=== PATIENT | female | born 1940 | race Caucasian/White ===

== ENCOUNTER 2016-10-12 22:44 | Observation (INO) | payer MEDICARE, OTHER ==
[~2016-10-12] VITALS: Ht 160 cm; Wt 85.3 kg
[~2016-10-12 22:44] MED LIST: ALBUTEROL0.63 MG/3 INH; ASPIR 8181 MG PO; CLARITIN10 MG PO; FLEXERIL 10 MG10 MG PO; FUROSEMIDE20 MG PO; KLOR-CON M2020 MEQ PO; LAMISIL250 MG PO; LEVEMIR100 UNIT/1 SQ; LIPITOR TAB 2020 MG PO; LISINOPRIL40 MG PO; METFORMIN HCL1000 MG PO; METOPROLOL TART50 MG PO; NEURONTIN 300300 MG PO; NEXIUM40 MG PO; NIASPAN1000 MG PO; NITROGLYCERIN2.5 MG PO; NORVASC 5 MG TAB5 MG PO; NOVOLOG 10100 UNITS1 SQ; SPIRIVA18 MCG INH; SYMBICORT 160-1 INHA INH; SYNTHROID100 MCG PO; VOLTAREN100 GM TP
[2016-10-13 02:18] LABS: HEMOGLOBIN 10.8 gm/dl (12.3-15.3); RED BLOOD COUNT 3.8 M/UL (4.00-5.10)
[2016-10-13 02:35] LABS: BUN/CREATININE RATIO 18 (0-10)
[2016-10-13] MEDS ORDERED: LAMISIL250 MG PO (08:43)
[2016-10-13] MEDS ORDERED: SYMBICORT 16010.2 GM INH (08:44)
[2016-10-14] MEDS ORDERED: TYLENOL 325MG325 MG PO (11:01)
[2016-10-14] MEDS ORDERED: MEDROL DOSEPAK 24 MG PO (11:04)
[2016-10-14] MEDS ORDERED: NORVASC 5 MG TAB5 MG PO (12:28)
== END 2016-10-14 12:10 | disposition home or self-care (01) ==
LOC: ER1 22:44 → ZEROF 10-13 05:12 → M/S 10-13 05:12
PROVIDERS: Physician Assistant; ADMIT Emergency Medicine
DX: R07.9 Chest pain, unspecified (principal); J44.1 Chronic obstructive pulmonary disease with (acute) exacerbation; R79.1 Abnormal coagulation profile; R60.9 Edema, unspecified; E11.9 Type 2 diabetes mellitus without complications; I11.0 Hypertensive heart disease with heart failure; I50.32 Chronic diastolic (congestive) heart failure; E78.5 Hyperlipidemia, unspecified; E03.9 Hypothyroidism, unspecified; K21.9 Gastro-esophageal reflux disease without esophagitis; D64.9 Anemia, unspecified; E66.9 Obesity, unspecified; I25.2 Old myocardial infarction; Z90.49 Acquired absence of other specified parts of digestive tract; Z87.891 Personal history of nicotine dependence; Z88.1 Allergy status to other antibiotic agents; Z88.8 Allergy status to other drugs, medicaments and biological substances; Z79.891 Long term (current) use of opiate analgesic; Z79.82 Long term (current) use of aspirin; Z79.899 Other long term (current) drug therapy; Z68.31 Body mass index [BMI] 31.0-31.9, adult; Z82.49 Family history of ischemic heart disease and other diseases of the circulatory system
CPT/HCPCS: 36415; 71010; 80053; 80061; 82550; 82553; 82962; 83880; 84484; 85025; 85379; 87040; 93005; 94060; 94640; 94664; 94729; 96365; 96375; 99285; G0378; J0456; J0696; J1040; J1940; J2930; J7030; J7050; Q9963

== ENCOUNTER → 2016-10-29 | Outpatient (CLI) | payer MEDICARE, OTHER ==
[~2016-10-29] MED LIST changes: +MEDROL DOSEPAK 24 MG PO; +SYMBICORT 16010.2 GM INH; +TYLENOL 325MG325 MG PO
== END ==
LOC: KOH-I 14:56
DX: M54.5 Low back pain (principal); Z98.1 Arthrodesis status; M51.26 Other intervertebral disc displacement, lumbar region
CPT/HCPCS: 72148

== ENCOUNTER → 2016-11-07 | Outpatient (CLI) | payer MEDICARE, OTHER | LOC: RT 13:11 | DX: R09.02 Hypoxemia (principal); J44.9 Chronic obstructive pulmonary disease, unspecified | CPT/HCPCS: 36600; 82803 ==